=== PATIENT | male | born 1970 | race Caucasian/White ===

== ENCOUNTER → 2020-06-11 | Outpatient (CLI) | payer BC, OTHER ==
[~2020-06-11] MED LIST: NORFLEX 100 MG100 MG PO; PREDNISONE 50 M50 MG PO; Voltaren Gel 1% TOP
== END ==
LOC: KOH-I 15:48
DX: N20.0 Calculus of kidney (principal)
CPT/HCPCS: 74176

== ENCOUNTER → 2020-07-19 | Outpatient (CLI) | payer BC, OTHER | LOC: KOH-I 12:29 | DX: J32.9 Chronic sinusitis, unspecified (principal); R59.1 Generalized enlarged lymph nodes; J32.0 Chronic maxillary sinusitis | CPT/HCPCS: 70486 ==